=== PATIENT | male | born 1990 | race Caucasian/White ===

== ENCOUNTER 2021-12-07 16:13 | Emergency (ER) | payer OTHER, SELFPAY ==
[2021-12-07 17:23] VITALS: BP 125/69; PULSE 82; RESP 18; TEMP 36.9; O2SAT 98; BMI 22.4
--- NOTE | 2021-12-07 18:26 | ED.GENADULT ---
HPI - General Adult General Chief complaint: General Medical Stated complaint: Shot needed Time Seen by Provider: 12/07/21 18:17 Related Data Previous Rx's Medication Instructions Recorded doxycycline monohydrate 100 mg 100 mg PO BID 10 Days #20 tab 12/07/21 tablet Allergies Allergy/AdvReac Type Severity Reaction Status Date / Time No Known Allergies Allergy Unverified 04/02/20 19:27 Physical Exam ED Vital Signs: Vital Signs - 24 hr 12/07/21 17:23 Temperature 98.4 F Pulse Rate 82 Respiratory Rate 18 Blood Pressure 125/69 Pulse Oximetry 98 BMI result Body Mass Index 22.4 Discharge Plan Discharge Clinical Impression: STD (sexually transmitted disease) Patient Disposition: Home, Self-Care Instructions: Sexually Transmitted Diseases (ED) Prescriptions: New doxycycline monohydrate 100 mg tablet 100 mg PO BID 10 Days Qty: 20 0RF Referrals: Physician,Unknown J [Primary Care Provider] - 2 days (your pcp) Print Language: Turkish
--- NOTE | 2021-12-07 18:31 | ED_ITS ---
HPI - Male Genitourinary General Chief complaint: General Medical Stated complaint: Shot needed Time Seen by Provider: 12/07/21 18:17 Source: patient Mode of arrival: ambulatory Limitations: no limitations History of Present Illness HPI Narrative: 31-year-old male presenting to the ER with his significant other at bedside that have been together for 7 years for STD treatment for gonorrhea chlamydia as she tested positive the last time she was seen here a few days ago. The patient's significant other reports that she was recently tested for gonorrhea chlamydia in all other STDs in 2019 and she was negative for all STDs. They report they do not know how they got this STD. They were asking if they could have gotten this from sharing drinks. I educated them about STDs. Otherwise he denies any fevers, chills, dizziness, headaches, abdominal pain, back pain, flank pain, dysuria, hematuria, abnormal penile discharge, abnormal rashes or lesions to the penile area or scrotum or any other symptoms complaints or concerns at this time. Related Data Previous Rx's Medication Instructions Recorded doxycycline monohydrate 100 mg 100 mg PO BID 10 Days #20 tab 12/07/21 tablet Allergies Allergy/AdvReac Type Severity Reaction Status Date / Time No Known Allergies Allergy Unverified 04/02/20 19:27 Review of Systems Review of Systems: Constitutional : No Weight loss, No Fever, No Chills, No Night Sweats, No Fatigue, NoMalaise ENT/Mouth: No ear pain, No sore throat, No Difficulty swallowing Cardiovascular : No Chest Pain, No SOB, No Dyspnea on Exertion, No Orthopnea, NoEdema, No Palpitations Respiratory : No Cough, No Sputum, No Wheezing, No Dyspnea Gastrointestinal : No Nausea, No Vomiting, No Diarrhea, + abdominal Pain, No Hematochezia, No Melena Genitourinary : No testicular pain, No irregular bleeding, No Dysuria, No Urinary Frequency, No Hematuria,No Urinary Incontinence, No Urgency, No Flank Pain Musculoskeletal : No joint pain, No Myalgias, No Joint Swelling Skin : No Skin Lesions, No rash Neuro : No Weakness, No Numbness, No Paresthesias, No Loss of Consciousness, NoDizziness, No Headache Psych : No Social Issues, Heme/Lymph: No Bruising, No Bleeding,No Lymphadenopathy Endocrine : No Polyuria, No Polydipsia, No Temperature Intolerance PATIENT DENIES ANY THOUGHTS OF STDS Yes all other systems are reviewed and are negative [facility] Past Medical History Attestation statement: The following information was validated with the patient. Physical Exam Vital Signs: Vital Signs: Last Vital Signs Temp 98.4 F 12/07/21 17:23 Pulse 82 12/07/21 17:23 Resp 18 12/07/21 17:23 BP 125/69 12/07/21 17:23 Pulse Ox 98 12/07/21 17:23 BMI result Body Mass Index 22.4 vital signs have been reviewed as normal and appeared to be correct. Blood pressure normal. Heart rate normal. Respiration rate normal. Temperature normal. Oxygen saturation normal. Appearance: Alert. Oriented X3. No acute distress. Head: Normal external exam. Normocephalic. Eyes: PERRLA. EOMI. Conjunctiva and sclera normal. Eyelids normal. ENT: Pharynx normal. Uvula midline. Moist mucous membranes. No trismus noted. No drooling noted. No muffled voice noted. Neck: Normal inspection. Neck supple. FROM. No adenopathy. No meningeal signs. CVS: Normal heart rate and rhythm. Heart sound normal. No murmurs noted. Pulses normal throughout. Respiratory: No respiratory distress. Painless inspiration. Breath sounds normal. No wheezes/rales/rhonchi noted. Chest nontender. No accessory muscle usage noted or decreased air movement noted. Abdomen: Soft and nontender. Nondistended. No guarding. No rigidity. Bowel sounds normal in all 4 quadrants. No distention noted. No organomegaly noted. No visible injury noted. No rebound tenderness. Negative Rovsing sign. Negative obturator's sign. Negative psoas sign. Negative Ordonez sign. Back: No CVA tenderness. Full range of motion noted. Skin: Skin warm and dry. Normal skin color. Normal skin turgor. No rashes/lesions/lacerations noted. Extremities: Extremities exhibit normal range of motion. Extremities nontender. Neuro: Oriented X 3. No motor deficit. No sensory deficit. Reflexes normal. Normal steady gait. CN's II-XII intact bilaterally? Course Course Course Narrative: Patient will be treated with 500 mg of IM Rocephin and 100 mg of doxycycline b.i.d. for 10 days for gonorrhea chlamydia since his spouse is also being treated. Along with instructions the not have any intercourse for at least 10 days until they both completely finish treatment and to not have any intercourse with any other partners and that if they have had any intercourse with any other partners that they should also be treated. Patient's understand and agree this plan. MDM - Male Genitourinary Medical Records Attestation: I reviewed the patient's medical records. Lab Data Attestation: I reviewed the patient's lab results. Discharge Plan Discharge Clinical Impression: STD (sexually transmitted disease) Patient Disposition: Home, Self-Care Instructions: Sexually Transmitted Diseases (ED) Prescriptions: New doxycycline monohydrate 100 mg tablet 100 mg PO BID 10 Days Qty: 20 0RF Referrals: Physician,Unknown J [Primary Care Provider] - 2 days (your pcp) Print Language: Turkish
[2021-12-07] MEDS: cefTRIAXone sodium 500 MG, Lidocaine HCl 1 % MPF 1 ML IM (19:16)
[2021-12-08 09:14] LABS: CT PCR DETECTED (Not Detect.); NG PCR DETECTED (Not Detect.)
== END 2021-12-07 19:23 | disposition home or self-care (01) ==
LOC: HO.ED 18:57
PROVIDERS: Emergency Provider Internal Medicine
DX: A64 Unspecified sexually transmitted disease (principal)
CPT/HCPCS: 87491; 87591; 96372; 99281; 99284; J0696